=== PATIENT | male | born 1995 | race African-American/Black ===

== ENCOUNTER 2023-04-22 03:19 | Emergency (ER) | payer MEDICAID ==
[~2023-04-22] VITALS: Ht 177.8 cm; Wt 70.7 kg
[2023-04-22 03:52] VITALS: O2SAT 100
[2023-04-22] MEDS ORDERED: IBUP-2029 MT (05:45)
[2023-04-22] MEDS ORDERED: IBUPROFEN 600MG TABLET PO ONE (05:45)
[2023-04-22] MEDS ORDERED: AMOX1TAB16 MT (05:48)
[2023-04-22 06:25] VITALS: BP 124/74; PULSE 68; RESP 15; TEMP 97.8
[2023-04-23] MEDS ORDERED: SULF1TAB48 MT (21:30)
[2023-04-23] MEDS ORDERED: CEPH500C2 MT (21:30)
== END 2023-04-22 06:28 | disposition home or self-care (01) ==
LOC: ER 03:43
DX: L02.01 Cutaneous abscess of face (principal)
CPT/HCPCS: 99283

== ENCOUNTER 2023-04-23 13:12 | Emergency (ER) | payer MEDICAID ==
[~2023-04-23] VITALS: Ht 177.8 cm; Wt 80.0 kg
[~2023-04-23 13:12] MED LIST: AMOX1TAB16 MT; IBUP-2029 MT
[2023-04-23 13:16] VITALS: BP 141/94; PULSE 96; RESP 16; TEMP 96.8; O2SAT 100
[2023-04-23] MEDS ORDERED: FAMOTIDINE 20MG/2ML VIAL IV STA (15:20)
[2023-04-23] MEDS ORDERED: ONDANSETRON HCL 4MG/2ML INJ IV STA (15:20)
[2023-04-23] MEDS ORDERED: ONDANSETRON HCL 4MG/2ML INJ IV NR (15:20)
[2023-04-23] MEDS ORDERED: FAMOTIDINE 20MG/2ML VIAL IV NR (15:20)
[2023-04-23 15:45] LABS: BASOPHILS % 0.2 % (0.0-2.0); EOSINOPHILS % 0.1 % (0.0-5.0); HEMATOCRIT. 44.8 % (42.0-52.0); HEMOGLOBIN. 14.8 g/dL (14.0-18.0); LYMPHOCYTES % 12.4 % (20.0-50.0); MEAN CORPUSCULAR HEMOGLOBIN 32.8 pg (28.0-32.0); MEAN CORPUSCULAR VOLUME 99.4 fL (80.0-94.0); MEAN PLATELET VOLUME 9.9 fl (7.4-10.4); MONOCYTES % 3.5 % (2.0-8.0); NEUTROPHILS % 83.8 % (40.0-76.0); PLATELET 180 x1000/uL (130-400); RED BLOOD CELL COUNT 4.51 mill/uL (4.7-6.1); RED CELL DISTRIBUTION WIDTH 13.9 % (11.6-14.6); WHITE BLOOD COUNT 12.6 x1000/uL (4.5-11.0)
[2023-04-23 15:57] LABS: INR 1.1; PROTHROMBIN TIME 11.7 sec (9.6-11.0)
[2023-04-23 15:59] LABS: CHLORIDE 109 mEq/L (98-107); INDEX HEMOLYSI 1 (1-3); INDEX ICTERIC 1 (1-4); INDEX LIPEMIC 1 (1-3); POTASSIUM 3.5 mEq/L (3.5-5.1); SODIUM 140 mEq/L (136-145)
[2023-04-23 16:10] LABS: ALANINE AMINOTRANSFERASE 18 IU/L (13-61); ALBUMIN 4.2 g/dL (3.4-5.0); ASPARTATE AMINOTRANSFERASE 19 IU/L (15-37); BILIRUBIN TOTAL 0.8 mg/dL (0.1-1.0); CALCIUM 9.4 mg/dL (8.5-10.1); CARBON DIOXIDE 23 mEq/L (21-32); CREATININE 0.8 mg/dL (0.6-1.3); GLUCOSE 129 mg/dL (70-105); UREA NITROGEN BLOOD 7 mg/dL (7-21)
[2023-04-23] MEDS ORDERED: MORPHINE SULFATE 4 MG/ML CPJ (NOT FOR IM USE) IV ONE (16:45)
[2023-04-23] MEDS ORDERED: IOHEXOL-350 100 ML BOTTLE ONE (20:50)
[2023-04-23] MEDS ORDERED: SODIUM CHLORIDE 0.9% 1,000 ML IV ONE (21:15)
[2023-04-23] MEDS ORDERED: CEPH500C2 MT (21:30)
[2023-04-23] MEDS ORDERED: SULF1TAB48 MT (21:30)
== END 2023-04-23 21:30 | disposition home or self-care (01) ==
LOC: ER 13:12
DX: R10.9 Unspecified abdominal pain (principal); L02.01 Cutaneous abscess of face; Z88.6 Allergy status to analgesic agent; Z88.8 Allergy status to other drugs, medicaments and biological substances
CPT/HCPCS: 99285; 74177; 96374; 96375; 80053; 83690; 85025; 85610; 36415; Q9967; J3490; J2405; J2270; J7030